=== PATIENT | female | born 1975 | race African-American/Black ===

== ENCOUNTER 2019-06-25 14:28 | Emergency (ER) | payer SELFPAY ==
[~2019-06-25] VITALS: Ht 170.2 cm; Wt 70.0 kg
[2019-06-25 14:38] VITALS: BP 134/74
== END 2019-06-25 15:25 | disposition left against medical advice (07) ==
LOC: ER 14:44
DX: Z53.21 Procedure and treatment not carried out due to patient leaving prior to being seen by health care provider (principal)